=== PATIENT | male | born 1960 | race African-American/Black ===

== ENCOUNTER → 2016-10-12 | Outpatient (CLI) | payer BC ==
[2015-09-06 07:41] VITALS: BP 146/91
--- NOTE | 2016-10-12 12:33 | RAD ---
PROCEDURE MRI of the cervical spine without contrast 10/12/2016 HISTORY Neck pain with stiffness for 1 month. Bilateral arm radiculopathy. TECHNIQUE Unenhanced T1 weighted, T2 weighted and inversion recovery sagittal and gradient echo and T2 weighted axial images of the cervical spine were obtained. FINDINGS Very mild lateral curvature of the cervical spine is seen convex to the left. There is straightening of the normal cervical lordosis. Degenerative signal changes are seen involving all of the discs of the cervical spine. Loss of height of the C4-5 and C5-6 discs is noted. Degenerative signal changes are seen within the marrow surrounding these discs. No area of abnormal signal intensity is seen involving the cervical spinal cord. On the axial images at the C2-3 disc space there is a mild generalized disc bulge. Superimposed on this disc bulge is a focal central disc protrusion. This measures 2 millimeters in AP diameter. Degenerative changes are seen involving the uncovertebral and facet joints bilaterally. These findings do not result in significant central spinal canal or neural foraminal stenosis. At the C3-4 disc space there is a mild generalized disc bulge. Superimposed on this disc bulge is a focal central disc protrusion. This measures 2 millimeters in AP diameter. Degenerative changes are seen involving the uncovertebral and facet joints, right greater than left. These findings when combined do not result in significant central spinal canal stenosis. Mild to moderate right neural foraminal stenosis is seen. The left neural foramina is patent. At the C4-5 disc space there is a mild to moderate generalized disc bulge. This is eccentric to the right. Degenerative changes are seen involving the uncovertebral and facet joints, right greater than left. Superimposed on the disc bulge is a right paracentral/lateral disc osteophyte complex. This measures 4 millimeters in AP diameter these findings when combined efface the anterior CSF, right greater than left and result in mild right-sided central spinal canal stenosis without cord impingement. Moderate to severe right neural foraminal stenosis is seen. Mild left neural foraminal stenosis is noted. At the C5-6 disc space there is a mild to moderate generalized disc bulge. Degenerative changes are seen involving the uncovertebral and facet joints bilaterally. These findings efface the anterior and posterior CSF resulting in mild central spinal canal stenosis without evidence of cord impingement. Mild to moderate bilateral neural foraminal stenosis is seen. At the C6-7 disc space there is a mild generalized disc bulge. This is slightly eccentric to the right. Degenerative changes are seen involving the uncovertebral and facet joints bilaterally. These findings do not result in significant central spinal canal or neural foraminal stenosis. At the C7-T1 disc space there is a mild generalized disc bulge. Degenerative changes are seen involving the facet joints bilaterally. These findings do not result in significant central spinal canal or neural foraminal stenosis. IMPRESSION Degenerative changes are seen throughout the cervical spine. These findings result in mild right-sided central spinal canal stenosis at C4-5 and mild central spinal canal stenosis at C5-6 without evidence of cord impingement. Multilevel neural foraminal stenosis of varying severity is seen as outlined above. Electronically signed by: Juan Jordan MD (Oct 12, 2016 12:31:23)
--- NOTE | 2016-10-12 12:40 | RAD ---
PROCEDURE MRI of the lumbar spine without contrast 10/12/2016 HISTORY Low back pain which radiates down the left leg. TECHNIQUE Unenhanced T1 weighted and T2 weighted sagittal and axial and inversion recovery sagittal images of the lumbar spine were obtained. FINDINGS Minimal S-shaped curvature of the thoracolumbar spine is seen. Degenerative signal changes are seen involving the L2-3, L3-4, L4-5 and L5-S1 discs. Degenerative signal changes are seen within the marrow surrounding these discs. The conus medullaris is normal in morphology, position, and signal characteristics. The L1-2 disc space is within normal limits. At the L2-3 disc space there is a mild to moderate generalized disc bulge. This is eccentric to the left. Degenerative changes are seen involving the facet joints bilaterally. There is mild ligamentum flavum hypertrophy bilaterally. These findings when combined result in mild left greater than right central spinal canal stenosis. Mild bilateral neural foraminal stenosis is seen. At the L3-4 disc space there is mild to moderate generalized disc bulge. This is eccentric to the left. Superimposed on this disc bulge is a left paracentral/lateral focal disc protrusion. This measures 4 millimeters in AP diameter. Degenerative changes are seen involving facet joints bilaterally. There is mild to moderate ligamentum flavum hypertrophy bilaterally. These findings when combined result in mild central spinal canal stenosis. Mild to moderate left greater than right neural foraminal stenosis is seen. At the L4-5 disc space there is a mild generalized disc bulge. Degenerative changes are seen involving the facet joints, right greater than left. There is mild ligamentum flavum hypertrophy bilaterally. These findings when combined do not result in significant central spinal canal stenosis. Mild to moderate right greater than left neural foraminal stenosis is seen. At the L5-S1 disc space there is a mild generalized disc bulge. Superimposed on the disc bulge is a focal central annular tear. This measures 1 centimeter and transverse diameter. No focal disc herniation is seen. Degenerative changes are seen involving the facet joints bilaterally. These findings do not result in significant central spinal canal or neural foraminal stenosis. IMPRESSION The changes of degenerative disc disease are seen throughout the lumbar spine. These findings result in mild left greater than right central spinal canal stenosis at L2-3 and mild central spinal canal stenosis at L3-4. Multilevel neural foraminal stenosis of varying severity is seen as outlined above. Electronically signed by: Juan Jordan MD (Oct 12, 2016 12:39:37)
== END | disposition home or self-care (01) ==
LOC: MRI 10:00
PROVIDERS: ATTEND Family Medicine
DX: M54.42 Lumbago with sciatica, left side (principal)
CPT/HCPCS: 72141; 72148

== ENCOUNTER → 2018-04-20 | Outpatient (CLI) | payer BC ==
[2015-09-06 07:41] VITALS: BP 146/91
--- NOTE | 2018-04-20 15:00 | KCIC ---
Landrum radiograph of the orbits 04/20/2018 CLINICAL HISTORY: Possible metal exposure to the eye. Pre-MRI evaluation. A Landrum digital radiograph of the orbits was obtained. No radiopaque foreign body is seen involving either orbit. The visualized paranasal sinuses are clear. No fracture is seen. IMPRESSION: No radiopaque foreign body is seen involving either orbit. Electronically signed by: Juan Jordan MD (04/20/2018 2:57 PM) [email or web address]
--- NOTE | 2018-04-20 16:49 | KCIC ---
MRI of the lumbar spine without contrast 04/20/2018 CLINICAL HISTORY: Low back pain which radiates down the left leg. TECHNIQUE: Unenhanced T1-weighted and T2-weighted sagittal and axial and inversion recovery sagittal images of the lumbar spine were obtained. FINDINGS: Comparison study is dated 10/12/2016. Minimal S-shaped curvature of the thoracolumbar spine is seen. Degenerative signal changes are seen involving the L2-3, L3-4, L4-5 and L5-S1 discs. Degenerative signal changes are seen within the marrow surrounding these discs. The conus medullaris is normal in morphology, position, and signal characteristics. The L1-2 disc space is within normal limits. At the L2-3 disc space there is a mild to moderate generalized disc bulge. Degenerative changes are seen involving the facet joints bilaterally. There is moderate ligamentum flavum hypertrophy bilaterally. There is prominence of the posterior epidural fat. These findings when combine result in mild to moderate central spinal canal stenosis. Mild bilateral neural foraminal stenosis is seen. At the L3-4 disc space there is a mild generalized disc bulge. This is eccentric to the right. Degenerative changes are seen involving the facet joints bilaterally. There is moderate ligamentum flavum hypertrophy bilaterally. These findings when combined result in mild to moderate central spinal canal stenosis. Mild to moderate left greater than right neural foraminal stenosis is seen. At the L4-5 disc space there is a mild generalized disc bulge. This is eccentric to the right. Degenerative changes are seen involving the facet joints bilaterally. There is mild ligament flavum hypertrophy bilaterally. These findings when combined result in mild central spinal canal stenosis. Mild to moderate right greater than left neural foraminal stenosis is seen. At the L5-S1 disc space there is a mild generalized disc bulge. Superimposed on this disc bulge is a focal central disc protrusion. This measures 2 mm in AP diameter. Degenerative changes are seen involving the facet joints bilaterally. These findings when combined do not result in significant central spinal canal or neural foraminal stenosis. IMPRESSION: The changes of degenerative disc disease are seen throughout the lumbar spine. These findings when combined result in mild to moderate central spinal canal stenosis at L2-3 and L3-4. Mild central spinal canal stenosis at L4-5. Multilevel neural foraminal stenosis is seen as outlined above. Electronically signed by: Juan Jordan MD (04/20/2018 4:45 PM) [id number]
--- NOTE | 2018-04-20 16:55 | KCIC ---
MRI of the cervical spine without contrast 04/20/2018 CLINICAL HISTORY: Neck pain. TECHNIQUE: Unenhanced T1-weighted, T2-weighted and inversion recovery sagittal and gradient echo and T2-weighted axial images of the cervical spine were obtained. FINDINGS: Comparison study is dated 10/12/2016. Very mild lateral curvature of the cervical spine is seen convex to the right. There is slight reversal of the normal cervical lordosis. Degenerative signal changes are seen involving all of the disks of the cervical spine. Loss of height of the C4-5 and C5-6 disc is noted. Degenerative signal changes are seen within the marrow surrounding these discs. No area of abnormal signal intensity is seen involving the cervical spinal cord. At the C2-3 and C3-4 disc spaces there are mild generalized disc bulges. Degenerative changes are seen involving the uncovertebral and facet joints bilaterally. These findings do not result in significant central spinal canal or neural foraminal stenosis. At the C4-5 disc space there is a mild to moderate generalized disc bulge. This is eccentric to the right. Degenerative changes are seen involving the uncovertebral and facet joints, right greater than left. These findings when combined do not result in significant central spinal canal stenosis. Mild to moderate right greater than left neural foraminal stenosis is seen. At the C5-6 disc space there is a mild generalized disc bulge. Degenerative changes are seen involving the uncovertebral and facet joints, right greater than left. These findings do not result in significant central spinal canal stenosis. Mild right greater than left neural foraminal stenosis is seen. At the C6-7 disc space there is a mild generalized disc bulge. Superimposed on this disc bulge is a right paracentral focal disc protrusion. This measures 2 mm in AP diameter. Degenerative changes are seen involving the uncovertebral and facet joints bilaterally. These findings when combined do not result in significant central spinal canal or neural foraminal stenosis. At the C7-T1 disc space there is a mild generalized disc bulge. Degenerative changes are seen involving the facet joints bilaterally. These findings when combined do not result in significant central spinal canal or neural foraminal stenosis. Since the previous examination there has been no significant interval change. IMPRESSION: Degenerative changes are seen throughout the cervical spine. These findings do not result in significant central spinal canal stenosis at any level. Mild to moderate right greater than left neural foraminal stenosis is seen at C4-5. Mild right greater than left neural foraminal stenosis is seen at C5-6. Electronically signed by: Juan Jordan MD (04/20/2018 4:51 PM) [id number]
== END | disposition home or self-care (01) ==
LOC: KCIC MRI 14:31
PROVIDERS: ATTEND Family Medicine
DX: Z01.00 Encounter for examination of eyes and vision without abnormal findings (principal); S12.401D Unspecified nondisplaced fracture of fifth cervical vertebra, subsequent encounter for fracture with routine healing; M51.36 Other intervertebral disc degeneration, lumbar region; M48.061 Spinal stenosis, lumbar region without neurogenic claudication; M51.26 Other intervertebral disc displacement, lumbar region; M47.892 Other spondylosis, cervical region; M48.02 Spinal stenosis, cervical region; X58.XXXD Exposure to other specified factors, subsequent encounter
CPT/HCPCS: 70030; 72141; 72148